=== PATIENT | female | born 1955 | race African-American/Black ===

== ENCOUNTER 2017-03-11 10:09 | Inpatient (IN) | payer OTHER ==
[2017-03-11 12:41] VITALS: BMI 25.5
--- NOTE | 2017-03-11 16:29 | HP ---
CIWA Score - CIWA Score Nausea/Vomitin Muscle Tremors: 3 Anxiety: 3 Agitation: 3 Paroxysmal Sweats: 2 Orientation: 0-Oriented Tacttile Disturbances: 2-Mild Itch/Numbness/Burn Auditory Disturbances: 2-Mild Harshness/Frighten Visual Disturbances: 2-Mild Sensitivity Headache: 2-Mild CIWA-Ar Total Score: 22 Admission ROS BHS - HPI Chief Complaint: i am here for detox from alcohol,xanax,klonopin Allergies/Adverse Reactions: Allergies Allergy/AdvReac Type Severity Reaction Status Date / Time No Known Drug Allergies Allergy Verified 03/11/17 16:19 nkda Allergy Uncoded 03/11/17 16:19 History of Present Illness: this 61 years old black female with xanax,klonopin and alcohol dependence, seeking detox,last treatment 10/22/15 to 10/25/16syncope mmtp 90 mgs/day,last medicated today multiple medical problem type 2 dm,htn,hypercholesterolemia depression one of multiple admissions,keep relapsing cataract both eyes ,surgery on right longest period of sobriety 10 years also has partial hysterectomy for fibroid uterus Exam Limitations: No Limitations - Ebola screening Have you been sick,other than usual withdrawal symptoms: No - Review of Systems Constitutional: Loss of Appetite, Malaise, Night Sweats, Changes in sleep, Weakness, Unintentional Wgt. Loss EENT: reports: Tearing, Nose Congestion, Other (cataract) Respiratory: reports: No Symptoms reported Cardiac: reports: No Symptoms Reported GI: reports: Diarrhea, Nausea, Vomiting, Abdominal cramping : reports: No Symptoms Reported Musculoskeletal: reports: Back Pain, Muscle Pain Integumentary: reports: Dryness Endocrine: reports: No Symptoms Reported Hematology: reports: No Symptoms Reported Psychiatric: reports: Judgement Intact, Mood/Affect Appropiate, Depressed Patient History - Patient Medical History Hx Anemia: No Hx Asthma: No Hx Chronic Obstructive Pulmonary Disease (COPD): No Hx Cancer: No Hx Cardiac Disorders: No Hx Congestive Heart Failure: No Hx Hypertension: Yes (on med) Hx Hypercholesterolemia: Yes (on med) Hx Pacemaker: No HX Cerebrovascular Accident: No Hx Seizures: Yes (drug related 09/07) Hx Dementia: No Hx Diabetes: Yes (on med) Hx Gastrointestinal Disorders: No Hx Genitourinary Disorders: No Hx Sexually Transmitted Disorders: No Hx Renal Disease (ESRD): No Hx Thyroid Disease: No Hx Human Immunodeficiency Virus (HIV): No (09/08 negative) Hx Hepatitis C: Yes (treated ) Hx Depression: Yes Hx Suicide Attempt: Yes (1973- not sure about date,overdose) Hx Bipolar Disorder: No Hx Schizophrenia: No Other Medical History: no suicidal,no homicidal - Patient Surgical History Past Surgical History: Yes Hx Neurologic Surgery: No Hx Cataract Extraction: Yes (4yrs ago) Hx Cardiac Surgery: No Hx Lung Surgery: No Hx Breast Surgery: No Hx Breast Biopsy: No Hx Abdominal Surgery: (partial hysterectomy about 40yrs ago) Hx Appendectomy: No Hx Cholecystectomy: No Hx Genitourinary Surgery: No Hx Section: No Hx Orthopedic Surgery: No Anesthesia Reaction: No - PPD History Previous Implant?: Yes Documented Results: Negative w/o proof Implanted On Prior [facility] Admission?: Yes Date: 10/24/15 Results: o mm PPD to be Administered?: Yes - Reproductive History Last Menstrual Period: 09/03/98 Patient : No - Smoking Cessation Smoking history: Never smoked Have you smoked in the past 12 months: No Aproximately how many cigarettes per day: 0 Cigars Per Day: 0 Hx Chewing Tobacco Use: No - Substance & Tx. History Hx Alcohol Use: Yes Hx Substance Use: Yes Substance Use Type: Alcohol, Cocaine, Tranquilizers Hx Substance Use Treatment: [facility] 10[facility]) - Substances Abused Alcohol Route: Oral Frequency: 3-6 times per week Amount used: 1 pint Age of first use: 13 Date of Last Use: 03/09/17 Alprazolam (Xanax) Route: Oral Frequency: Daily Amount used: 4mg Age of first use: 33 Date of Last Use: 03/10/17 Benzodiazepine (Klonopin) Route: Oral Frequency: Daily Amount used: 4mg Age of first use: 33 Date of Last Use: 03/10/17 Cocaine Route: Inhalation Frequency: 1-3 times last 30 days Amount used: $20 Age of first use: 18 Date of Last Use: 03/07/17 Family Disease History - Family Disease History Family Disease History: Diabetes: Brother (deasesed) Admission Physical Exam BHS - Vital Signs Vital Signs: Vital Signs - 24 hr 03/11/17 12:37 Temperature 97.0 F L Pulse Rate 60 Respiratory 20 Rate Blood Pressure 144/72 - Physical General Appearance: Yes: Moderate Distress, Tremorous, Irritable, Sweating, Anxious HEENTM: Yes: Normal ENT Inspection, [place], Pharynx Normal Respiratory: Yes: Lungs Clear, Normal Breath Sounds, No Respiratory Distress Neck: Yes: Within Normal Limits, Supple, Trachea in good position Breast: Yes: Breast Exam Deferred Cardiology: Yes: Within Normal Limits, Regular Rhythm, Regular Rate, S1, S2 Abdominal: Yes: Within Normal Limits, Normal Bowel Sounds, Non Tender, Flat, Soft Genitourinary: Yes: Within Normal Limits Back: Yes: Muscle Spasm Musculoskeletal: Yes: full range of Motion, Back pain, Muscle Pain Extremities: Yes: Normal Inspection, Normal Range of Motion, Tremors 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, Alert, Motor Strength 5/5 Integumentary: Yes: Dry Lymphatic: Yes: Within Normal Limits - Diagnostic (1) HTN (hypertension) Current Visit: Yes Status: Chronic Qualifiers: Hypertension type: essential hypertension Qualified Code(s): I10 - Essential (primary) hypertension (2) Methadone maintenance therapy patient Current Visit: No Status: Chronic (3) Sedative/hypnotic withdrawal without complication Current Visit: Yes Status: Acute (4) DM2 (diabetes mellitus, type 2) Current Visit: Yes Status: Acute (5) Hypocholesterolemia Current Visit: Yes Status: Acute (6) Hepatitis C Current Visit: Yes Status: Chronic Cleared for Admission [facility] - Detox or Rehab [facility] Level of Care: Medically Managed Detox Regimen/Protocol: Valium [facility] Breath Alcohol Content Breath Alcohol Content: 0 Urine Pregancy Test - Result Urine Test Results: Negative- NO Line Present Urine Drug Screen - Results Drug Screen Negative: No Urine Drug Screen Results: CLARA-Cocaine, BZO-Benzodiazepines, MTD-Methadone
[2017-03-11] MEDS ORDERED: hydrOXYzine PAMOATE 25 MG CAPSULE (FP) PO PRN (16:52)
[2017-03-11] MEDS ORDERED: guaiFENesin/D-METHORPHAN HB 10 ML UNIT-DOSE CUPS PO PRN (16:52)
[2017-03-11] MEDS ORDERED: diphenhydrAMINE HCL 50 MG CAPSULE PO PRN (16:52)
[2017-03-11] MEDS ORDERED: P-EPHED 60MG/TRIPROLIDI 2.5MG TABLET PO PRN (16:52)
[2017-03-11] MEDS ORDERED: MAGNESIUM HYDROX 2400MG/30ML ORAL SUSPENSION 30 ML CUP PO PRN (16:52)
[2017-03-11] MEDS ORDERED: MAGNESIUM CITRATE 300 ML BOTTLE PO PRN (16:52)
[2017-03-11] MEDS ORDERED: MENTHOL/PHENOL 1 EACH UD MM PRN (16:52)
[2017-03-11] MEDS ORDERED: LOPERAMIDE HCL 2 MG CAPSULE PO PRN (16:52)
[2017-03-11] MEDS ORDERED: ACETAMINOPHEN 325 MG TABLET (FP) PO PRN (16:52)
[2017-03-11] MEDS ORDERED: diazePAM 5 MG TABLET PO PRN (16:52)
[2017-03-11] MEDS ORDERED: IBUPROFEN 400 MG TABLET (FP) PO PRN (16:52)
[2017-03-11] MEDS ORDERED: diazePAM 5 MG TABLET PO ONE (17:30)
[2017-03-11 21:12] LABS: URINE APPEARANCE CLEAR; URINE BILIRUBIN NEGATIVE (NEGATIVE); URINE BLOOD NEGATIVE (NEGATIVE); URINE COLOR YELLOW; URINE GLUCOSE (UA) 1+ (NEGATIVE); URINE KETONE NEGATIVE (NEGATIVE); URINE NITRITE NEGATIVE (NEGATIVE); URINE PROTEIN NEGATIVE (NEGATIVE); URINE UROBILINOGEN NEGATIVE mg/dL (0.2-1.0)
[2017-03-11 21:14] LABS: URINE LEUK ESTERASE 1+ (NEGATIVE)
[2017-03-11 22:01] LABS: URINE MUCUS RARE; URINE RBC 1 /hpf (0-3); URINE WBC 1 /hpf (3-5)
[2017-03-11] MEDS: ATORVASTATIN CA 20 MG TABLET (FP) PO SCH (22:18)
[2017-03-11] MEDS: THIAMINE HCL 100 MG TABLET (FP) PO SCH (22:18)
[2017-03-11] MEDS: INSULIN DETEMIR 100 UNITS/ML MDV SQ SCH (22:19)
[2017-03-11] MEDS: diazePAM 5 MG TABLET PO SCH (22:19)
[2017-03-12] MEDS: diazePAM 5 MG TABLET PO SCH ×3 (05:58→22:24)
[2017-03-12 10:17] LABS: MCH 31.5 pg (25.7-33.7); MCHC 33.5 g/dl (32.0-36.0); MEAN CELL VOLUME 93.9 fl (80-96); MEAN PLT VOLUME 7.3 fl (7.5-11.1); PLATELET COUNT 171 K/MM3 (134-434); RDW 13.3 % (11.6-15.6); WHITE BLOOD COUNT 4.5 K/mm3 (4.0-10.0)
--- NOTE | 2017-03-12 10:23 | EKG ---
Test Reason : Blood Pressure : / mmHG Vent. Rate : 060 BPM Atrial Rate : 060 BPM P-R Int : 140 ms QRS Dur : 076 ms QT Int : 378 ms P-R-T Axes : 050 043 029 degrees QTc Int : 378 ms NORMAL SINUS RHYTHM POSSIBLE LEFT ATRIAL ENLARGEMENT Confirmed by MD MARY, SAVANA ([id number]) on 03/12/2017 10:23:31 AM Referred By: Confirmed By:SAVANA HERNANDEZ MD
[2017-03-12] MEDS ORDERED: METHADONE HCL 10 MG TABLET PO ONE (10:41)
[2017-03-12] MEDS: HYDROCHLOROTHIAZIDE 25 MG TABLET (FP) PO SCH (10:49)
[2017-03-12] MEDS: PRENATAL VITAMINS W/ FOLIC ACID TABLET (FP) PO SCH (10:49)
[2017-03-12] MEDS: MAG HYDROX/AL HYDROX/SIMETH 30 ML UNIT-DOSE CUP PO PRN (10:50)
[2017-03-12] MEDS: LISINOPRIL 10 MG TABLET (FP) PO SCH (10:50)
[2017-03-12] MEDS ORDERED: METHADONE 80 MG, METHADONE 10 MG PO ONE (11:00)
[2017-03-12 11:05] LABS: ALBUMIN 3.3 g/dl (3.4-5.0); ALK PHOS 72 U/L (45-117); ANION GAP 7 (8-16); BILIRUBIN,TOTAL 0.4 mg/dL (0.2-1.0); CO2 31 mmol/L (21-32); CREATININE 0.8 mg/dL (0.55-1.02); GLUCOSE,RANDOM 141 mg/dL (74-106); SGOT/AST 25 U/L (15-37); SGPT/ALT 26 U/L (12-78); TOT PROT 6.1 g/dl (6.4-8.2)
[2017-03-12] MEDS ORDERED: METHADONE HCL 40 MG DISPERSABLE TABLET ONE (11:17)
[2017-03-12] MEDS ORDERED: METHADONE HCL 10 MG TABLET ONE (11:18)
--- NOTE | 2017-03-12 11:56 | PN ---
[facility] CIWA - CIWA Score Nausea/Vomitin Muscle Tremors: 3 Anxiety: 3 Agitation: 3 Paroxysmal Sweats: 3 Orientation: 0-Oriented Tacttile Disturbances: 2-Mild Itch/Numbness/Burn Auditory Disturbances: 0-None Visual Disturbances: 0-None Headache: 0-None Present CIWA-Ar Total Score: 17 [facility] Progress Note (SOAP) Subjective: interrupted sleep, sweats, shakes, anxiety Objective: 03/12/17 11:54 Vital Signs Temperature 97.9 F 03/12/17 10:00 Pulse Rate 68 03/12/17 10:00 Respiratory Rate 18 03/12/17 10:00 Blood Pressure 131/72 03/12/17 10:00 O2 Sat by Pulse Oximetry (%) Laboratory Tests 03/11/17 03/11/17 03/11/17 16:50 17:20 21:57 WBC RBC Hgb Hct MCV MCH MCHC RDW Plt Count MPV Sodium Potassium Chloride Carbon Dioxide Anion Gap BUN Creatinine Creat Clearance w eGFR POC Glucometer 106 254 Random Glucose Calcium Total Bilirubin AST ALT Alkaline Phosphatase Total Protein Albumin Urine Color Yellow Urine Appearance Clear Urine pH 6.0 Ur Specific [place] 1.020 Urine Protein Negative Urine Glucose (UA) 1+ H D Urine Ketones Negative Urine Blood Negative Urine Nitrite Negative Urine Bilirubin Negative Urine Urobilinogen Negative Ur Leukocyte Esterase 1+ H Urine RBC 1 Urine WBC 1 Ur Epithelial Cells Rare Urine Mucus Rare 03/12/17 03/12/17 03/12/17 05:57 06:30 06:30 WBC 4.5 RBC 4.06 Hgb 12.8 Hct 38.1 MCV 93.9 MCH 31.5 MCHC 33.5 RDW 13.3 Plt Count 171 D MPV 7.3 L Sodium 141 Potassium 3.7 Chloride 103 Carbon Dioxide 31 Anion Gap 7 L BUN 9 D Creatinine 0.8 Creat Clearance w eGFR > 60 POC Glucometer 188 Random Glucose 141 H D Calcium 9.0 Total Bilirubin 0.4 D AST 25 ALT 26 Alkaline Phosphatase 72 Total Protein 6.1 L Albumin 3.3 L Urine Color Urine Appearance Urine pH Ur Specific [place] Urine Protein Urine Glucose (UA) Urine Ketones Urine Blood Urine Nitrite Urine Bilirubin Urine Urobilinogen Ur Leukocyte Esterase Urine RBC Urine WBC Ur Epithelial Cells Urine Mucus pt aox3 in nad ambulating Assessment: 03/12/17 11:55 withdrawal sx's Plan: cont. detox increase fluids vistaril prn
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
[2017-03-12] MEDS: ZOLPIDEM TARTRATE 5 MG TABLET PO PRN (22:23)
[2017-03-12] MEDS: INSULIN DETEMIR 100 UNITS/ML MDV SQ SCH (22:23)
[2017-03-12] MEDS: ATORVASTATIN CA 20 MG TABLET (FP) PO SCH (22:24)
[2017-03-12] MEDS: THIAMINE HCL 100 MG TABLET (FP) PO SCH (22:24)
[2017-03-13] MEDS ORDERED: METHADONE HCL 40 MG DISPERSABLE TABLET ONE (05:25)
[2017-03-13] MEDS ORDERED: METHADONE HCL 10 MG TABLET ONE (05:26)
[2017-03-13] MEDS: METHADONE 80 MG, METHADONE 10 MG PO SCH (05:52)
[2017-03-13] MEDS ORDERED: METHADONE HCL 10 MG TABLET PO SCH (06:00)
[2017-03-13] MEDS: HYDROCHLOROTHIAZIDE 25 MG TABLET (FP) PO SCH (10:43)
[2017-03-13] MEDS: LISINOPRIL 10 MG TABLET (FP) PO SCH (10:43)
[2017-03-13] MEDS: PRENATAL VITAMINS W/ FOLIC ACID TABLET (FP) PO SCH (10:43)
[2017-03-13] MEDS: diazePAM 5 MG TABLET PO SCH ×2 (10:43→22:29)
--- NOTE | 2017-03-13 15:14 | PN ---
S CIWA - CIWA Score Nausea/Vomitin Muscle Tremors: 3 Anxiety: 3 Agitation: 2 Paroxysmal Sweats: 1-Minimal Palms Moist Orientation: 0-Oriented Tacttile Disturbances: 1-Very Mild Itch/Numbness Auditory Disturbances: 1-Very Mild Visual Disturbances: 1-Very Mild Sensitivity Headache: 2-Mild CIWA-Ar Total Score: 17 S Progress Note (SOAP) Subjective: alert,irritable,anxious,interrupted sleep,tremor Objective: 03/13/17 15:12 Vital Signs Temperature 97.7 F 03/13/17 14:31 Pulse Rate 74 03/13/17 14:31 Respiratory Rate 18 03/13/17 14:31 Blood Pressure 161/92 03/13/17 14:31 O2 Sat by Pulse Oximetry (%) Laboratory Last Values WBC 4.5 K/mm3 (4.0-10.0) 03/12/17 06:30 RBC 4.06 M/mm3 (3.60-5.2) 03/12/17 06:30 Hgb 12.8 GM/dL (10.7-15.3) 03/12/17 06:30 Hct 38.1 % (32.4-45.2) 03/12/17 06:30 MCV 93.9 fl (80-96) 03/12/17 06:30 MCH 31.5 pg (25.7-33.7) 03/12/17 06:30 MCHC 33.5 g/dl (32.0-36.0) 03/12/17 06:30 RDW 13.3 % (11.6-15.6) 03/12/17 06:30 Plt Count 171 K/MM3 (134-434) D 03/12/17 06:30 MPV 7.3 fl (7.5-11.1) L 03/12/17 06:30 Sodium 141 mmol/L (136-145) 03/12/17 06:30 Potassium 3.7 mmol/L (3.5-5.1) 03/12/17 06:30 Chloride 103 mmol/L (98-107) 03/12/17 06:30 Carbon Dioxide 31 mmol/L (21-32) 03/12/17 06:30 Anion Gap 7 (8-16) L 03/12/17 06:30 BUN 9 mg/dL (7-18) D 03/12/17 06:30 Creatinine 0.8 mg/dL (0.55-1.02) 03/12/17 06:30 Creat Clearance w eGFR > 60 (>60) 03/12/17 06:30 POC Glucometer 206 UNITS (()) 03/13/17 05:51 Random Glucose 141 mg/dL (74-106) H D 03/12/17 06:30 Calcium 9.0 mg/dL (8.5-10.1) 03/12/17 06:30 Total Bilirubin 0.4 mg/dL (0.2-1.0) D 03/12/17 06:30 AST 25 U/L (15-37) 03/12/17 06:30 ALT 26 U/L (12-78) 03/12/17 06:30 Alkaline Phosphatase 72 U/L (45-117) 03/12/17 06:30 Total Protein 6.1 g/dl (6.4-8.2) L 03/12/17 06:30 Albumin 3.3 g/dl (3.4-5.0) L 03/12/17 06:30 Urine Color Yellow 03/11/17 17:20 Urine Appearance Clear 03/11/17 17:20 Urine pH 6.0 (5.0-8.0) 03/11/17 17:20 Ur Specific [place] 1.020 (1.005-1.025) 03/11/17 17:20 Urine Protein Negative (NEGATIVE) 03/11/17 17:20 Urine Glucose (UA) 1+ (NEGATIVE) H D 03/11/17 17:20 Urine Ketones Negative (NEGATIVE) 03/11/17 17:20 Urine Blood Negative (NEGATIVE) 03/11/17 17:20 Urine Nitrite Negative (NEGATIVE) 03/11/17 17:20 Urine Bilirubin Negative (NEGATIVE) 03/11/17 17:20 Urine Urobilinogen Negative mg/dL (0.2-1.0) 03/11/17 17:20 Ur Leukocyte Esterase 1+ (NEGATIVE) H 03/11/17 17:20 Urine RBC 1 /hpf (0-3) 03/11/17 17:20 Urine WBC 1 /hpf (3-5) 03/11/17 17:20 Ur Epithelial Cells Rare /hpf (FEW) 03/11/17 17:20 Urine Mucus Rare 03/11/17 17:20 RPR Titer Nonreactive (NONREACTIVE) 03/12/17 06:30 Assessment: 03/13/17 15:13 withdrawal symptom Plan: continue detox,bgm monitoring
[2017-03-13] MEDS: MAG HYDROX/AL HYDROX/SIMETH 30 ML UNIT-DOSE CUP PO PRN (22:28)
[2017-03-13] MEDS: ZOLPIDEM TARTRATE 5 MG TABLET PO PRN (22:29)
[2017-03-13] MEDS: INSULIN DETEMIR 100 UNITS/ML MDV SQ SCH (22:29)
[2017-03-13] MEDS: ATORVASTATIN CA 20 MG TABLET (FP) PO SCH (22:29)
[2017-03-13] MEDS: THIAMINE HCL 100 MG TABLET (FP) PO SCH (22:30)
[2017-03-14] MEDS ORDERED: METHADONE HCL 10 MG TABLET ONE (04:42)
[2017-03-14] MEDS ORDERED: METHADONE HCL 40 MG DISPERSABLE TABLET ONE (04:42)
[2017-03-14] MEDS: METHADONE 80 MG, METHADONE 10 MG PO SCH (05:33)
[2017-03-14] MEDS: ONDANSETRON *ODT* 4 MG TABLET SL PRN ×2 (09:18→20:01)
[2017-03-14] MEDS: PRENATAL VITAMINS W/ FOLIC ACID TABLET (FP) PO SCH (10:28)
[2017-03-14] MEDS: HYDROCHLOROTHIAZIDE 25 MG TABLET (FP) PO SCH (10:28)
[2017-03-14] MEDS: diazePAM 5 MG TABLET PO SCH ×2 (10:29→22:11)
[2017-03-14] MEDS: LISINOPRIL 10 MG TABLET (FP) PO SCH (10:29)
--- NOTE | 2017-03-14 11:40 | PN ---
S Progress Note (SOAP) Subjective: ALERT,IRRITABLE,NAUSEA PAIN IN THE BODY Objective: 03/14/17 11:39 Vital Signs Temperature 98.2 F 03/14/17 10:00 Pulse Rate 90 03/14/17 10:00 Respiratory Rate 20 03/14/17 10:00 Blood Pressure 161/99 03/14/17 10:00 O2 Sat by Pulse Oximetry (%) Assessment: 03/14/17 11:40 WITHDRAWAL SYMPTOM Plan: CONTINUE DETOX,DISCHARGE IN AM
[2017-03-14] MEDS: INSULIN DETEMIR 100 UNITS/ML MDV SQ SCH (22:11)
[2017-03-14] MEDS: ATORVASTATIN CA 20 MG TABLET (FP) PO SCH (22:11)
[2017-03-14] MEDS: THIAMINE HCL 100 MG TABLET (FP) PO SCH (22:36)
[2017-03-15] MEDS ORDERED: METHADONE HCL 40 MG DISPERSABLE TABLET ONE (04:53)
[2017-03-15] MEDS ORDERED: METHADONE HCL 10 MG TABLET ONE (04:54)
[2017-03-15] MEDS: METHADONE 80 MG, METHADONE 10 MG PO SCH (05:33)
--- NOTE | 2017-03-15 09:28 | DS ---
[facility] Detox Discharge Summary Admission Date: 03/11/17 Discharge Date: 03/15/17 - History Present History: Sedative Dependence, MMTP - Physical Exam Results Vital Signs: Vital Signs Temperature 98.1 F 03/15/17 06:20 Pulse Rate 70 03/15/17 06:20 Respiratory Rate 18 03/15/17 06:20 Blood Pressure 160/89 03/15/17 06:20 O2 Sat by Pulse Oximetry (%) - Treatment Hospital Course: Detox Protocol Followed, Detoxed Safely, Responded well, Discharged Condition Good, Rehab Referral Accepted - Medication Discharge Medications: Ambulatory Orders Insulin Glargine,Hum.rec.anlog [Lantus Solostar PEN -] 16 units SQ HS #1 ins 01/05 Metformin HCl [Metformin HCl ER] 1,000 mg PO DAILY #30 tab.er.24 10/26/15 Simvastatin 40 mg PO HS #30 tablet 10/26/15 Lisinopril/Hydrochlorothiazide [Lisinopril-Hctz 20-25 mg Tab] 1 each PO DAILY - Diagnosis (1) DM2 (diabetes mellitus, type 2) Current Visit: Yes Status: Chronic Qualifiers: Diabetes mellitus complication status: without complication Diabetes mellitus intermediate designer insulin use: unspecified intermediate designer insulin use status Qualified Code(s): E11.9 - Type 2 diabetes mellitus without complications (2) Hypocholesterolemia Current Visit: Yes Status: Chronic (3) Insomnia Current Visit: Yes Status: Acute (4) Opioid dependence on agonist therapy Current Visit: Yes Status: Acute (5) Sedative/hypnotic withdrawal without complication Current Visit: Yes Status: Chronic (6) Diabetes Current Visit: Yes Status: Chronic Qualifiers: Diabetes mellitus type: type 1 Diabetes mellitus complication status: without complication Qualified Code(s): E10.9 - Type 1 diabetes mellitus without complications (7) HTN (hypertension) Current Visit: Yes Status: Chronic Qualifiers: Hypertension type: essential hypertension Qualified Code(s): I10 - Essential (primary) hypertension (8) Hepatitis C Current Visit: Yes Status: Chronic Qualifiers: Viral hepatitis chronicity: chronic Hepatic coma status: without hepatic coma Qualified Code(s): B18.2 - Chronic viral hepatitis C (9) Anxiety disorder Current Visit: No Status: Acute (10) Methadone maintenance therapy patient Current Visit: Yes Status: Chronic - AMA Did Patient Leave Against Medical Advice: No (HELP out patient)
[2017-03-15] MEDS: LISINOPRIL 10 MG TABLET (FP) PO SCH (09:50)
[2017-03-15] MEDS: PRENATAL VITAMINS W/ FOLIC ACID TABLET (FP) PO SCH (09:50)
[2017-03-15] MEDS: HYDROCHLOROTHIAZIDE 25 MG TABLET (FP) PO SCH (09:50)
[2017-03-15] MEDS ORDERED: diazePAM 5 MG TABLET PO SCH (10:00)
[2017-03-15 10:08] VITALS: BP 170/93; PULSE 95; TEMP 97.3
== END 2017-03-15 10:56 | disposition home or self-care (01) | DRG 773 ==
LOC: YASAS 10:09 → Y6N 16:41
PROVIDERS: ADMIT Internal Medicine Addiction Medicine; ATTEND Internal Medicine Addiction Medicine
PROC: HZ2ZZZZ Detoxification Services for Substance Abuse Treatment (ICD-10-PCS; principal; 2017-03-11)
DX: F13.230 Sedative, hypnotic or anxiolytic dependence with withdrawal, uncomplicated (principal); F11.20 Opioid dependence, uncomplicated; F41.9 Anxiety disorder, unspecified; E11.9 Type 2 diabetes mellitus without complications; E78.00 Pure hypercholesterolemia, unspecified; G47.00 Insomnia, unspecified; I10 Essential (primary) hypertension; H26.9 Unspecified cataract; Z86.69 Personal history of other diseases of the nervous system and sense organs; Z79.84 Long term (current) use of oral hypoglycemic drugs; Z90.710 Acquired absence of both cervix and uterus; Z91.5 Personal history of self-harm
CPT/HCPCS: 36415; 80053; 81003; 81015; 85027; 86593; 93005; 93010

== ENCOUNTER 2018-03-01 11:15 | Inpatient (IN) | payer OTHER ==
[2018-03-01 11:54] VITALS: BMI 24.0
--- NOTE | 2018-03-01 14:37 | HP ---
CIWA Score - CIWA Score Nausea/Vomitin Muscle Tremors: 3 Anxiety: 3 Agitation: 2 Paroxysmal Sweats: 1-Minimal Palms Moist Orientation: 0-Oriented Tacttile Disturbances: 1-Very Mild Itch/Numbness Auditory Disturbances: 1-Very Mild Visual Disturbances: 0-None Headache: 2-Mild CIWA-Ar Total Score: 16 Admission ROS [facility] - HPI Chief Complaint: i need help to stop drinking alcohol,klonopin and mmtp Allergies/Adverse Reactions: Allergies Allergy/AdvReac Type Severity Reaction Status Date / Time No Known Drug Allergies Allergy Verified 03/01/18 13:59 nkda Allergy Uncoded 03/01/18 13:59 History of Present Illness: this 62 years old female with alcohol and klonopin dependence,mmtp 90 mgs/day, seeking detox,withdrawal symptom, ambulation with wlaker,frequent falls hypertension,hypercholesterolemia,arthritis,arthritis weight loss no significant period of sobriety ptsd,depression,insomnia s/p hysterectomy for fibroid multiple admissions in the past but keep relapsing - Ebola screening Have you traveled outside of the country in the last 21 days: No Have you had contact with anyone from an Ebola affected area: No Have you been sick,other than usual withdrawal symptoms: No Do you have a fever: No - Review of Systems Constitutional: Loss of Appetite, Malaise, Night Sweats, Changes in sleep, Weakness, Unintentional Wgt. Loss EENT: reports: Tearing, Nose Congestion Respiratory: reports: No Symptoms reported Cardiac: reports: No Symptoms Reported GI: reports: Diarrhea, Nausea, Vomiting, Abdominal cramping : reports: No Symptoms Reported Musculoskeletal: reports: Back Pain, Joint Pain, Muscle Pain Integumentary: reports: Dryness Neuro: reports: Headache, Tremors Endocrine: reports: No Symptoms Reported Hematology: reports: No Symptoms Reported Psychiatric: reports: No Sypmtoms Reported, Judgement Intact, Mood/Affect Appropiate, Orientated x3 Patient History - Patient Medical History Hx Anemia: No Hx Asthma: No Hx Chronic Obstructive Pulmonary Disease (COPD): No Hx Cancer: No Hx Cardiac Disorders: No Hx Congestive Heart Failure: No Hx Hypertension: Yes (on meds.) Hx Hypercholesterolemia: Yes (on med) Hx Pacemaker: No HX Cerebrovascular Accident: No Hx Seizures: No Hx Dementia: No Hx Diabetes: Yes (Pt has a hx of Type II) Hx Gastrointestinal Disorders: No Hx Liver Disease: Yes (herpatitis c) Hx Genitourinary Disorders: No Hx Sexually Transmitted Disorders: No Hx Renal Disease (ESRD): No Hx Thyroid Disease: No Hx Human Immunodeficiency Virus (HIV): No (09/08 negative) Hx Hepatitis C: Yes (treated ) Hx Depression: Yes Hx Suicide Attempt: No Hx Bipolar Disorder: No Hx Schizophrenia: No Other Medical History: no suicidal,no homicidal,frquent falls,ambulation with walker - Patient Surgical History Past Surgical History: Yes Hx Neurologic Surgery: No Hx Cataract Extraction: Yes (L eye in 2012 R eye 3 months ago) Hx Cardiac Surgery: No Hx Lung Surgery: No Hx Breast Surgery: No Hx Breast Biopsy: No Hx Abdominal Surgery: Yes (partial hysterectomy about 40yrs ago) Hx Appendectomy: No Hx Cholecystectomy: No Hx Genitourinary Surgery: No Hx Section: No Hx Orthopedic Surgery: No Anesthesia Reaction: No - PPD History Previous Implant?: Yes Documented Results: Negative w/proof Implanted On Prior [facility] Admission?: Yes Date: 10/24/15 Results: o mm PPD to be Administered?: Yes - Reproductive History Patient is a Female of Child Bearing Age (11 -55 yrs old): No Last Menstrual Period: 09/03/98 Patient : No - Smoking Cessation Smoking history: Never smoked Have you smoked in the past 12 months: No Aproximately how many cigarettes per day: 0 If you are a former smoker, when did you quit?: 2013 Cigars Per Day: 0 Hx Chewing Tobacco Use: No Initiated information on smoking cessation: Yes 'Breaking Loose' booklet given: 03/01/18 - Substance & Tx. History Hx Alcohol Use: Yes Hx Substance Use: Yes Substance Use Type: Alcohol, Cocaine, Tranquilizers Hx Substance Use Treatment: Yes ([facility] 12/07/17 to 12/11/17) - Substances Abused Benzodiazepine (Klonopin) Route: Oral Frequency: Daily Amount used: 20mg Age of first use: 52 Date of Last Use: 02/25/18 Alprazolam (Xanax) Route: Oral Frequency: Daily Amount used: 4mg Age of first use: 52 Date of Last Use: 02/28/18 Cocaine Route: Inhalation Frequency: Daily Amount used: $10 Age of first use: 19 Date of Last Use: 02/27/18 Alcohol Route: Oral Frequency: Daily Amount used: 1/2 pint liquor Age of first use: 11 Date of Last Use: 02/28/18 Family Disease History - Family Disease History Family Disease History: Diabetes: Brother () Admission Physical Exam [facility] - Vital Signs Vital Signs: Vital Signs - 24 hr 03/01/18 11:50 Temperature 96.2 F L Pulse Rate 54 L Respiratory 19 Rate Blood Pressure 116/70 - Physical General Appearance: Yes: Moderate Distress, Tremorous, Irritable, Sweating, Anxious HEENTM: Yes: Normal ENT Inspection, [place], Pharynx Normal Respiratory: Yes: Lungs Clear, Normal Breath Sounds, No Respiratory Distress Neck: Yes: Within Normal Limits, Supple, Trachea in good position Breast: Yes: Breast Exam Deferred Cardiology: Yes: Within Normal Limits, Regular Rhythm, Regular Rate, S1, S2 Abdominal: Yes: Within Normal Limits, Normal Bowel Sounds, Non Tender, Soft Genitourinary: Yes: Within Normal Limits Back: Yes: Muscle Spasm Musculoskeletal: Yes: Back pain, Joint Stiffness, Muscle Pain Extremities: Yes: Tremors 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, Fully Oriented, Alert, Motor Strength 5/5 Integumentary: Yes: Dry Lymphatic: Yes: Within Normal Limits - Diagnostic (1) Alcohol dependence with uncomplicated withdrawal Current Visit: Yes Status: Acute (2) Sedative/hypnotic withdrawal without complication Current Visit: No Status: Chronic (3) Cocaine dependence Current Visit: Yes Status: Acute (4) Insomnia Current Visit: Yes Status: Acute (5) DM2 (diabetes mellitus, type 2) Current Visit: Yes Status: Chronic Qualifiers: Diabetes mellitus termite technician insulin use: unspecified termite technician insulin use status Diabetes mellitus complication status: without complication Qualified Code(s): E11.9 - Type 2 diabetes mellitus without complications (6) HTN (hypertension) Current Visit: Yes Status: Chronic Qualifiers: Hypertension type: essential hypertension Qualified Code(s): I10 - Essential (primary) hypertension (7) Hepatitis C Current Visit: Yes Status: Chronic Qualifiers: Viral hepatitis chronicity: chronic Hepatic coma status: without hepatic coma Qualified Code(s): B18.2 - Chronic viral hepatitis C (8) Methadone maintenance therapy patient Current Visit: No Status: Chronic Cleared for Admission [facility] - Detox or Rehab [facility] Level of Care: Medically Managed [facility]ox [facility]ath Alcohol Content Breath Alcohol Content: 0 Urine Pregancy Test - Result Urine Test Results: Negative- NO Line Present Urine Drug Screen - Results Drug Screen Negative: No Urine Drug Screen Results: CLARA-Cocaine, BZO-Benzodiazepines, MTD-Methadone
[2018-03-01] MEDS ORDERED: MAGNESIUM CITRATE 300 ML BOTTLE PO PRN (14:52)
[2018-03-01] MEDS ORDERED: MENTHOL/PHENOL 1 EACH UD MM PRN (14:52)
[2018-03-01] MEDS ORDERED: MAGNESIUM HYDROX 2400MG/30ML ORAL SUSPENSION 30 ML CUP PO PRN (14:52)
[2018-03-01] MEDS ORDERED: LOPERAMIDE HCL 2 MG CAPSULE PO PRN (14:52)
[2018-03-01] MEDS ORDERED: P-EPHED 60MG/TRIPROLIDI 2.5MG TABLET PO PRN (14:52)
[2018-03-01] MEDS ORDERED: hydrOXYzine PAMOATE 25 MG CAPSULE (FP) PO PRN (14:52)
[2018-03-01] MEDS ORDERED: ACETAMINOPHEN 325 MG TABLET (FP) PO PRN (14:52)
[2018-03-01] MEDS ORDERED: MAG HYDROX/AL HYDROX/SIMETH 30 ML UNIT-DOSE CUP PO PRN (14:52)
[2018-03-01] MEDS ORDERED: chlordiazePOXIDE HCL 25 MG CAPSULE PO PRN (14:52)
[2018-03-01] MEDS ORDERED: IBUPROFEN 400 MG TABLET (FP) PO PRN (14:52)
[2018-03-01] MEDS ORDERED: guaiFENesin/D-METHORPHAN HB 10 ML UNIT-DOSE CUPS PO PRN (14:52)
[2018-03-01] MEDS: chlordiazePOXIDE HCL 25 MG CAPSULE PO SCH ×2 (17:27→22:07)
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
[2018-03-01] MEDS: ATORVASTATIN CA 40 MG TABLET (FP) PO SCH (22:08)
[2018-03-01] MEDS: THIAMINE HCL 100 MG TABLET (FP) PO SCH (22:08)
[2018-03-01] MEDS: MELATONIN 5 MG TABLETS PO PRN (22:08)
[2018-03-02] MEDS: chlordiazePOXIDE HCL 25 MG CAPSULE PO SCH ×4 (06:01→22:15)
[2018-03-02 09:31] LABS: HEMATOCRIT 32.8 % (32.4-45.2); HEMOGLOBIN 11.2 GM/dL (10.7-15.3); MCH 31.8 pg (25.7-33.7); MCHC 34.1 g/dl (32.0-36.0); MEAN CELL VOLUME 93.3 fl (80-96); PLATELET COUNT 139 K/MM3 (134-434); RBC 3.51 M/mm3 (3.60-5.2); RDW 13.9 % (11.6-15.6); WHITE BLOOD COUNT 4.4 K/mm3 (4.0-10.0)
[2018-03-02 09:44] LABS: ALBUMIN 3.4 g/dl (3.4-5.0); ANION GAP 8 (8-16); BLOOD UREA NITROGEN 14 mg/dL (7-18); CALCIUM 9.1 mg/dL (8.5-10.1); CHLORIDE 107 mmol/L (98-107); CO2 32 mmol/L (21-32); CREATININE 0.9 mg/dL (0.55-1.02); GLUCOSE,RANDOM 71 mg/dL (74-106); POTASSIUM 3.7 mmol/L (3.5-5.1); SGOT/AST 30 U/L (15-37); SGPT/ALT 26 U/L (12-78); SODIUM 147 mmol/L (136-145)
[2018-03-02 09:45] LABS: ALK PHOS 57 U/L (45-117); BILIRUBIN,TOTAL 0.6 mg/dL (0.2-1.0); TOT PROT 6.1 g/dl (6.4-8.2)
[2018-03-02] MEDS ORDERED: METHADONE HCL 10 MG TABLET PO ONE (09:57)
[2018-03-02] MEDS: amLODIPine BESYLATE 10 MG TABLET (FP) PO SCH (10:06)
[2018-03-02] MEDS: LISINOPRIL 20 MG TABLET (FP) PO SCH (10:06)
[2018-03-02] MEDS: PRENATAL VITAMINS W/ FOLIC ACID TABLET (FP) PO SCH (10:06)
[2018-03-02] MEDS ORDERED: METHADONE 80 MG, METHADONE 10 MG PO ONE (10:15)
--- NOTE | 2018-03-02 10:16 | EKG ---
Test Reason : Blood Pressure : / mmHG Vent. Rate : 055 BPM Atrial Rate : 055 BPM P-R Int : 140 ms QRS Dur : 072 ms QT Int : 614 ms P-R-T Axes : 048 046 020 degrees QTc Int : 587 ms SINUS BRADYCARDIA WITH FREQUENT PREMATURE VENTRICULAR COMPLEXES IN A PATTERN OF BIGEMINY POSSIBLE LEFT ATRIAL ENLARGEMENT NONSPECIFIC T WAVE ABNORMALITY ABNORMAL ECG WHEN COMPARED WITH ECG OF 11-MAR-2017 16:31, PREMATURE VENTRICULAR COMPLEXES ARE NOW PRESENT QT HAS LENGTHENED Confirmed by PALMIRA HUBBARD, MARJORIE ([id number]) on 03/02/2018 10:16:15 AM Referred By: Confirmed By:MARJORIE CHAVIS MD
--- NOTE | 2018-03-02 10:19 | PN ---
[facility] CIWA - CIWA Score Nausea/Vomitin-Mild Nausea/No Vomiting Muscle Tremors: 4-Moderate,w/Arms Extend Anxiety: 4-Mod. Anxious/Guarded Agitation: 4-Moderately Restless Paroxysmal Sweats: 1-Minimal Palms Moist Orientation: 0-Oriented Tacttile Disturbances: 0-None Auditory Disturbances: 0-None Visual Disturbances: 0-None Headache: 0-None Present CIWA-Ar Total Score: 14 S Progress Note (SOAP) Subjective: sweat tremor restlessness irritable anxiety Objective: 03/02/18 10:18 Vital Signs Temperature 97.9 F 03/02/18 09:14 Pulse Rate 57 L 03/02/18 09:14 Respiratory Rate 16 03/02/18 09:14 Blood Pressure 131/75 03/02/18 09:14 O2 Sat by Pulse Oximetry (%) Laboratory Last Values WBC 4.4 K/mm3 (4.0-10.0) 03/02/18 07:00 RBC 3.51 M/mm3 (3.60-5.2) L 03/02/18 07:00 Hgb 11.2 GM/dL (10.7-15.3) 03/02/18 07:00 Hct 32.8 % (32.4-45.2) 03/02/18 07:00 MCV 93.3 fl (80-96) 03/02/18 07:00 MCH 31.8 pg (25.7-33.7) 03/02/18 07:00 MCHC 34.1 g/dl (32.0-36.0) 03/02/18 07:00 RDW 13.9 % (11.6-15.6) 03/02/18 07:00 Plt Count 139 K/MM3 (134-434) 03/02/18 07:00 MPV 7.0 fl (7.5-11.1) L 03/02/18 07:00 Sodium 147 mmol/L (136-145) H 03/02/18 08:30 Potassium 3.7 mmol/L (3.5-5.1) 03/02/18 08:30 Chloride 107 mmol/L (98-107) 03/02/18 08:30 Carbon Dioxide 32 mmol/L (21-32) 03/02/18 08:30 Anion Gap 8 (8-16) 03/02/18 08:30 BUN 14 mg/dL (7-18) 03/02/18 08:30 Creatinine 0.9 mg/dL (0.55-1.02) 03/02/18 08:30 Creat Clearance w eGFR > 60 (>60) 03/02/18 08:30 POC Glucometer 86 UNITS (80-120) 03/02/18 06:01 Random Glucose 71 mg/dL (74-106) L 03/02/18 08:30 Calcium 9.1 mg/dL (8.5-10.1) 03/02/18 08:30 Total Bilirubin 0.6 mg/dL (0.2-1.0) 03/02/18 08:30 AST 30 U/L (15-37) 03/02/18 08:30 ALT 26 U/L (12-78) 03/02/18 08:30 Alkaline Phosphatase 57 U/L (45-117) 03/02/18 08:30 Total Protein 6.1 g/dl (6.4-8.2) L 03/02/18 08:30 Albumin 3.4 g/dl (3.4-5.0) 03/02/18 08:30 lab noted Assessment: 03/02/18 10:19 withdrawal sx Plan: continue detox
[2018-03-02] MEDS ORDERED: METHADONE HCL 10 MG TABLET ONE (10:35)
[2018-03-02] MEDS ORDERED: METHADONE HCL 40 MG DISPERSABLE TABLET ONE (10:35)
[2018-03-02 14:50] LABS: URINE APPEARANCE CLEAR; URINE BILIRUBIN NEGATIVE (<2.0 mg/dL); URINE COLOR YELLOW; URINE GLUCOSE (UA) NEGATIVE (NEGATIVE); URINE KETONE NEGATIVE (NEGATIVE); URINE NITRITE NEGATIVE (NEGATIVE); URINE PROTEIN NEGATIVE (NEGATIVE); URINE UROBILINOGEN 4.0 E.U/dl mg/dL (0.2-1.0)
[2018-03-02 14:51] LABS: URINE LEUK ESTERASE 1+ (NEGATIVE)
[2018-03-02 14:53] LABS: EPI CELLS RARE /HPF (FEW); URINE HYALINE CAST 1 /lpf; URINE MUCUS RARE
[2018-03-02] MEDS: THIAMINE HCL 100 MG TABLET (FP) PO SCH (22:15)
[2018-03-02] MEDS: MELATONIN 5 MG TABLETS PO PRN (22:16)
[2018-03-02] MEDS: ATORVASTATIN CA 40 MG TABLET (FP) PO SCH (22:16)
[2018-03-02] MEDS: INSULIN (LEVEMIR) 100 UNITS/ML UNITS SQ SCH (22:33)
[2018-03-03] MEDS ORDERED: METHADONE HCL 10 MG TABLET ONE (04:48)
[2018-03-03] MEDS ORDERED: METHADONE HCL 40 MG DISPERSABLE TABLET ONE (04:48)
[2018-03-03] MEDS ORDERED: METHADONE HCL 40 MG DISPERSABLE TABLET PO SCH (06:00)
[2018-03-03] MEDS: METHADONE 80 MG, METHADONE 10 MG PO SCH (06:11)
[2018-03-03] MEDS: chlordiazePOXIDE HCL 25 MG CAPSULE PO SCH ×2 (06:11→10:10)
[2018-03-03] MEDS: LISINOPRIL 20 MG TABLET (FP) PO SCH (10:10)
[2018-03-03] MEDS: amLODIPine BESYLATE 10 MG TABLET (FP) PO SCH (10:10)
[2018-03-03] MEDS: PRENATAL VITAMINS W/ FOLIC ACID TABLET (FP) PO SCH (10:10)
[2018-03-03] MEDS: ASPIRIN 81 MG CHEWABLE TABLETS PO SCH (10:10)
--- NOTE | 2018-03-03 10:20 | PN ---
[facility] CIWA - CIWA Score Nausea/Vomitin-No Nausea/No Vomiting Muscle Tremors: 3 Anxiety: 3 Agitation: 3 Paroxysmal Sweats: 1-Minimal Palms Moist Orientation: 0-Oriented Tacttile Disturbances: 1-Very Mild Itch/Numbness Auditory Disturbances: 0-None Visual Disturbances: 0-None Headache: 1-Very Mild CIWA-Ar Total Score: 12 [facility] Progress Note (SOAP) Subjective: MILD HEADACHE TREMOR SWEAT RESTLESSNESS IRRITABLE ANXIETY Objective: 03/03/18 10:19 Vital Signs Temperature 96.1 F L 03/03/18 07:44 Pulse Rate 59 L 03/03/18 07:44 Respiratory Rate 18 03/03/18 07:44 Blood Pressure 110/55 03/03/18 07:44 O2 Sat by Pulse Oximetry (%) Laboratory Last Values WBC 4.4 K/mm3 (4.0-10.0) 03/02/18 07:00 RBC 3.51 M/mm3 (3.60-5.2) L 03/02/18 07:00 Hgb 11.2 GM/dL (10.7-15.3) 03/02/18 07:00 Hct 32.8 % (32.4-45.2) 03/02/18 07:00 MCV 93.3 fl (80-96) 03/02/18 07:00 MCH 31.8 pg (25.7-33.7) 03/02/18 07:00 MCHC 34.1 g/dl (32.0-36.0) 03/02/18 07:00 RDW 13.9 % (11.6-15.6) 03/02/18 07:00 Plt Count 139 K/MM3 (134-434) 03/02/18 07:00 MPV 7.0 fl (7.5-11.1) L 03/02/18 07:00 Sodium 147 mmol/L (136-145) H 03/02/18 08:30 Potassium 3.7 mmol/L (3.5-5.1) 03/02/18 08:30 Chloride 107 mmol/L (98-107) 03/02/18 08:30 Carbon Dioxide 32 mmol/L (21-32) 03/02/18 08:30 Anion Gap 8 (8-16) 03/02/18 08:30 BUN 14 mg/dL (7-18) 03/02/18 08:30 Creatinine 0.9 mg/dL (0.55-1.02) 03/02/18 08:30 Creat Clearance w eGFR > 60 (>60) 03/02/18 08:30 POC Glucometer 126 UNITS (80-120) 03/03/18 06:39 Random Glucose 71 mg/dL (74-106) L 03/02/18 08:30 Calcium 9.1 mg/dL (8.5-10.1) 03/02/18 08:30 Total Bilirubin 0.6 mg/dL (0.2-1.0) 03/02/18 08:30 AST 30 U/L (15-37) 03/02/18 08:30 ALT 26 U/L (12-78) 03/02/18 08:30 Alkaline Phosphatase 57 U/L (45-117) 03/02/18 08:30 Total Protein 6.1 g/dl (6.4-8.2) L 03/02/18 08:30 Albumin 3.4 g/dl (3.4-5.0) 03/02/18 08:30 Urine Color Yellow 03/02/18 11:10 Urine Appearance Clear 03/02/18 11:10 Urine pH 5.0 (5.0-8.0) 03/02/18 11:10 Ur Specific [place] 1.029 (1.001-1.035) 03/02/18 11:10 Urine Protein Negative (NEGATIVE) 03/02/18 11:10 Urine Glucose (UA) Negative (NEGATIVE) 03/02/18 11:10 Urine Ketones Negative (NEGATIVE) 03/02/18 11:10 Urine Blood Negative (NEGATIVE) 03/02/18 11:10 Urine Nitrite Negative (NEGATIVE) 03/02/18 11:10 Urine Bilirubin Negative (<2.0 mg/dL) 03/02/18 11:10 Urine Urobilinogen 4.0 e.u/dl mg/dL (0.2-1.0) H 03/02/18 11:10 Ur Leukocyte Esterase 1+ (NEGATIVE) H 03/02/18 11:10 Urine WBC (Auto) 5-8 /hpf (3-5) 03/02/18 11:10 Urine RBC (Auto) 0-3 /hpf (0-3) 03/02/18 11:10 Ur Epithelial Cells Rare /HPF (FEW) 03/02/18 11:10 Hyaline Casts 1 /lpf 03/02/18 11:10 Urine Mucus Rare 03/02/18 11:10 RPR Titer Nonreactive (NONREACTIVE) 03/02/18 07:00 HIV 1&2 Antibody Screen Negative 03/02/18 07:00 HIV P24 Antigen Negative 03/02/18 07:00 LAB NOTED Assessment: 03/03/18 10:19 WITHDRAWAL SX Plan: CONTINUE DETOX
--- NOTE | 2018-03-03 12:12 | EKG ---
Test Reason : Blood Pressure : / mmHG Vent. Rate : 060 BPM Atrial Rate : 060 BPM P-R Int : 124 ms QRS Dur : 078 ms QT Int : 454 ms P-R-T Axes : 081 043 041 degrees QTc Int : 454 ms POOR DATA QUALITY, INTERPRETATION MAY BE ADVERSELY AFFECTED NORMAL SINUS RHYTHM WITH SINUS ARRHYTHMIA POSSIBLE LEFT ATRIAL ENLARGEMENT NONSPECIFIC ST AND T WAVE ABNORMALITY ABNORMAL ECG WHEN COMPARED WITH ECG OF 01-MAR-2018 16:49, PREMATURE VENTRICULAR COMPLEXES ARE NO LONGER PRESENT QT HAS SHORTENED Confirmed by LITZY RUBIN MD ([id number]) on 03/03/2018 12:12:09 PM Referred By: Confirmed By:LITZY RUBIN MD
[2018-03-03] MEDS: chlordiazePOXIDE 5 MG CAPSULE PO SCH ×2 (17:30→22:18)
[2018-03-03] MEDS: THIAMINE HCL 100 MG TABLET (FP) PO SCH (22:18)
[2018-03-03] MEDS: INSULIN (LEVEMIR) 100 UNITS/ML UNITS SQ SCH (22:18)
[2018-03-03] MEDS: ATORVASTATIN CA 40 MG TABLET (FP) PO SCH (22:19)
[2018-03-04] MEDS ORDERED: METHADONE HCL 10 MG TABLET ONE (04:25)
[2018-03-04] MEDS ORDERED: METHADONE HCL 40 MG DISPERSABLE TABLET ONE (04:25)
[2018-03-04] MEDS: chlordiazePOXIDE 5 MG CAPSULE PO SCH ×2 (05:17→10:30)
[2018-03-04] MEDS: METHADONE 80 MG, METHADONE 10 MG PO SCH (05:18)
[2018-03-04] MEDS: PRENATAL VITAMINS W/ FOLIC ACID TABLET (FP) PO SCH (10:29)
[2018-03-04] MEDS: amLODIPine BESYLATE 10 MG TABLET (FP) PO SCH (10:29)
[2018-03-04] MEDS: ASPIRIN 81 MG CHEWABLE TABLETS PO SCH (10:30)
[2018-03-04] MEDS: LIDOCAINE 5% TOPICAL PATCH TP SCH (10:30)
[2018-03-04] MEDS: LISINOPRIL 20 MG TABLET (FP) PO SCH (10:30)
--- NOTE | 2018-03-04 11:07 | PN ---
S Progress Note Note: c/o of back pain , headache, interrupted sleep. Denies noe pain, visual changes or vertigo. Vital Signs Temperature 97.1 F L 03/04/18 10:19 Pulse Rate 64 03/04/18 10:19 Respiratory Rate 18 03/04/18 10:19 Blood Pressure 150/72 03/04/18 10:19 O2 Sat by Pulse Oximetry (%) Laboratory Last Values WBC 4.4 K/mm3 (4.0-10.0) 03/02/18 07:00 RBC 3.51 M/mm3 (3.60-5.2) L 03/02/18 07:00 Hgb 11.2 GM/dL (10.7-15.3) 03/02/18 07:00 Hct 32.8 % (32.4-45.2) 03/02/18 07:00 MCV 93.3 fl (80-96) 03/02/18 07:00 MCH 31.8 pg (25.7-33.7) 03/02/18 07:00 MCHC 34.1 g/dl (32.0-36.0) 03/02/18 07:00 RDW 13.9 % (11.6-15.6) 03/02/18 07:00 Plt Count 139 K/MM3 (134-434) 03/02/18 07:00 MPV 7.0 fl (7.5-11.1) L 03/02/18 07:00 Sodium 147 mmol/L (136-145) H 03/02/18 08:30 Potassium 3.7 mmol/L (3.5-5.1) 03/02/18 08:30 Chloride 107 mmol/L (98-107) 03/02/18 08:30 Carbon Dioxide 32 mmol/L (21-32) 03/02/18 08:30 Anion Gap 8 (8-16) 03/02/18 08:30 BUN 14 mg/dL (7-18) 03/02/18 08:30 Creatinine 0.9 mg/dL (0.55-1.02) 03/02/18 08:30 Creat Clearance w eGFR > 60 (>60) 03/02/18 08:30 POC Glucometer 118 UNITS (80-120) 03/04/18 05:16 Random Glucose 71 mg/dL (74-106) L 03/02/18 08:30 Calcium 9.1 mg/dL (8.5-10.1) 03/02/18 08:30 Total Bilirubin 0.6 mg/dL (0.2-1.0) 03/02/18 08:30 AST 30 U/L (15-37) 03/02/18 08:30 ALT 26 U/L (12-78) 03/02/18 08:30 Alkaline Phosphatase 57 U/L (45-117) 03/02/18 08:30 Total Protein 6.1 g/dl (6.4-8.2) L 03/02/18 08:30 Albumin 3.4 g/dl (3.4-5.0) 03/02/18 08:30 Urine Color Yellow 03/02/18 11:10 Urine Appearance Clear 03/02/18 11:10 Urine pH 5.0 (5.0-8.0) 03/02/18 11:10 Ur Specific [place] 1.029 (1.001-1.035) 03/02/18 11:10 Urine Protein Negative (NEGATIVE) 03/02/18 11:10 Urine Glucose (UA) Negative (NEGATIVE) 03/02/18 11:10 Urine Ketones Negative (NEGATIVE) 03/02/18 11:10 Urine Blood Negative (NEGATIVE) 03/02/18 11:10 Urine Nitrite Negative (NEGATIVE) 03/02/18 11:10 Urine Bilirubin Negative (<2.0 mg/dL) 03/02/18 11:10 Urine Urobilinogen 4.0 e.u/dl mg/dL (0.2-1.0) H 03/02/18 11:10 Ur Leukocyte Esterase 1+ (NEGATIVE) H 03/02/18 11:10 Urine WBC (Auto) 5-8 /hpf (3-5) 03/02/18 11:10 Urine RBC (Auto) 0-3 /hpf (0-3) 03/02/18 11:10 Ur Epithelial Cells Rare /HPF (FEW) 03/02/18 11:10 Hyaline Casts 1 /lpf 03/02/18 11:10 Urine Mucus Rare 03/02/18 11:10 RPR Titer Nonreactive (NONREACTIVE) 03/02/18 07:00 HIV 1&2 Antibody Screen Negative 03/02/18 07:00 HIV P24 Antigen Negative 03/02/18 07:00 AOx3 no distress no adventitious breath sounds full ROM ambulating in the unit + back pain + headache Plan: ibuprofen PRN for headache increase fluids lidocaine patch for pain continue to monitor
[2018-03-04] MEDS: chlordiazePOXIDE HCL 10 MG CAPSULE PO SCH ×2 (17:25→22:21)
[2018-03-04] MEDS ORDERED: LIDOCAINE PATCH REMOVAL MC SCH (22:00)
[2018-03-04] MEDS: THIAMINE HCL 100 MG TABLET (FP) PO SCH (22:21)
[2018-03-04] MEDS: INSULIN (LEVEMIR) 100 UNITS/ML UNITS SQ SCH (22:22)
[2018-03-04] MEDS: ATORVASTATIN CA 40 MG TABLET (FP) PO SCH (22:22)
[2018-03-05] MEDS ORDERED: METHADONE HCL 10 MG TABLET ONE (04:27)
[2018-03-05] MEDS ORDERED: METHADONE HCL 40 MG DISPERSABLE TABLET ONE (04:27)
[2018-03-05] MEDS: chlordiazePOXIDE HCL 10 MG CAPSULE PO SCH ×2 (05:21→10:33)
[2018-03-05] MEDS: METHADONE 80 MG, METHADONE 10 MG PO SCH (05:21)
[2018-03-05 09:53] VITALS: BP 132/71; PULSE 70; TEMP 99.3
[2018-03-05] MEDS: amLODIPine BESYLATE 10 MG TABLET (FP) PO SCH (10:33)
[2018-03-05] MEDS: LISINOPRIL 20 MG TABLET (FP) PO SCH (10:33)
[2018-03-05] MEDS: PRENATAL VITAMINS W/ FOLIC ACID TABLET (FP) PO SCH (10:33)
[2018-03-05] MEDS: ASPIRIN 81 MG CHEWABLE TABLETS PO SCH (10:33)
[2018-03-05] MEDS: LIDOCAINE 5% TOPICAL PATCH TP SCH (10:34)
--- NOTE | 2018-03-05 14:51 | PN ---
S Progress Note (SOAP) Subjective: denies any new complain Objective: 03/05/18 14:50 A & O x 3 Ambulates with walker without distress Vital Signs Temperature 99.3 F 03/05/18 09:52 Pulse Rate 70 03/05/18 09:52 Respiratory Rate 18 03/05/18 09:52 Blood Pressure 132/71 03/05/18 09:52 O2 Sat by Pulse Oximetry (%) Assessment: 03/05/18 14:50 detox successfully completed Plan: for discharge
--- NOTE | 2018-03-05 14:52 | DS ---
[facility] Detox Discharge Summary Admission Date: 03/01/18 Discharge Date: 03/05/18 - History Additional Comments: pt being d/c To continue aftercare in [facility] Pertinent Past History: DM 2 htn mmtp - Physical Exam Results Vital Signs: Vital Signs Temperature 99.3 F 03/05/18 09:52 Pulse Rate 70 03/05/18 09:52 Respiratory Rate 18 03/05/18 09:52 Blood Pressure 132/71 03/05/18 09:52 O2 Sat by Pulse Oximetry (%) Pertinent Admission Physical Exam Findings: withdrawal sx - Treatment Hospital Course: Detox Protocol Followed, Detoxed Safely, Responded well, Discharged Condition Good, Rehab Referral Accepted Patient has Accepted a Rehab Referral to: [facility] Rehab - Medication Discharge Medications: Ambulatory Orders Metformin HCl [Metformin HCl ER] 1,000 mg PO DAILY #30 tab.er.[email or web address] 10/26/15 Amlodipine Besylate [Norvasc -] 10 mg PO DAILY 03/01/18 Atorvastatin Calcium 40 mg PO HS 03/01/18 Famotidine 20 mg PO BID 03/01/18 Insulin Glargine,Hum.rec.anlog [Mikael Allen U-100] 8 unit SQ HS 03/01/18 Lisinopril [Prinivil -] 40 mg PO DAILY 03/01/18 Methadone [Dolophine -] 90 mg PO DAILY@0600 03/02/18 - AMA Did Patient Leave Against Medical Advice: No
== END 2018-03-05 11:11 | disposition other institution (70) | DRG 773 ==
LOC: YASAS 11:15 → Y6N 16:30
PROVIDERS: ADMIT Surgery; ATTEND Surgery
PROC: HZ2ZZZZ Detoxification Services for Substance Abuse Treatment (ICD-10-PCS; principal; 2018-03-01)
DX: F11.20 Opioid dependence, uncomplicated (principal); F13.230 Sedative, hypnotic or anxiolytic dependence with withdrawal, uncomplicated; F10.230 Alcohol dependence with withdrawal, uncomplicated; F14.20 Cocaine dependence, uncomplicated; I10 Essential (primary) hypertension; E78.00 Pure hypercholesterolemia, unspecified; E11.9 Type 2 diabetes mellitus without complications; Z79.4 Long term (current) use of insulin; Z79.84 Long term (current) use of oral hypoglycemic drugs; B18.2 Chronic viral hepatitis C; R26.2 Difficulty in walking, not elsewhere classified; Z99.89 Dependence on other enabling machines and devices; Z91.5 Personal history of self-harm
CPT/HCPCS: 36415; 80053; 81003; 81015; 82962; 85027; 86593; 87389; 93005; 93010

== ENCOUNTER 2018-03-05 11:21 | Inpatient (IN) | payer OTHER ==
[2018-03-05] MEDS ORDERED: IBUPROFEN 400 MG TABLET (FP) PO PRN (15:12)
[2018-03-05] MEDS ORDERED: ACETAMINOPHEN 325 MG TABLET (FP) PO PRN (15:12)
[2018-03-05] MEDS ORDERED: LOPERAMIDE HCL 2 MG CAPSULE PO PRN (15:12)
[2018-03-05] MEDS ORDERED: MAGNESIUM HYDROX 2400MG/30ML ORAL SUSPENSION 30 ML CUP PO PRN (15:12)
[2018-03-05] MEDS ORDERED: P-EPHED 60MG/TRIPROLIDI 2.5MG TABLET PO PRN (15:12)
[2018-03-05] MEDS ORDERED: MENTHOL/PHENOL 1 EACH UD MM PRN (15:12)
[2018-03-05] MEDS ORDERED: hydrOXYzine PAMOATE 50 MG CAPSULE (FP) PO PRN (15:12)
[2018-03-05] MEDS ORDERED: NICOTINE POLACRILEX 2 MG GUM BUC PRN (15:12)
[2018-03-05] MEDS ORDERED: MAGNESIUM CITRATE 300 ML BOTTLE PO PRN (15:12)
[2018-03-05] MEDS ORDERED: guaiFENesin/D-METHORPHAN HB 10 ML UNIT-DOSE CUPS PO PRN (15:12)
[2018-03-05] MEDS ORDERED: INSULIN SLIDING SCALE (NOVOLOG) 1 VIAL SQ SCH (16:30)
[2018-03-05] MEDS ORDERED: INSULIN (NOVOLOG) ASPART 100 UNITS/ML 10ML VIAL ONE (16:44)
[2018-03-05] MEDS: INSULIN SLIDING SCALE (NOVOLOG) 1 VIAL SQ SCH (16:55)
[2018-03-05] MEDS: RANITIDINE HCL 150 MG TABLET (FP) PO SCH (21:16)
[2018-03-05] MEDS: THIAMINE HCL 100 MG TABLET (FP) PO SCH (21:16)
[2018-03-05] MEDS: ATORVASTATIN CA 40 MG TABLET (FP) PO SCH (21:16)
[2018-03-05] MEDS: MELATONIN 5 MG TABLETS PO PRN (21:17)
[2018-03-05] MEDS: INSULIN (LEVEMIR) 100 UNITS/ML UNITS SQ SCH (21:18)
[2018-03-05] MEDS: LIDOCAINE PATCH REMOVAL MC SCH (21:18)
[2018-03-05] MEDS ORDERED: PT OWN MED DRAWER 7, Y5N ONE (23:35)
[2018-03-06] MEDS ORDERED: METHADONE HCL 40 MG DISPERSABLE TABLET PO SCH (06:00)
[2018-03-06] MEDS: metFORMIN HCL 500 MG TABLET (FP) PO SCH (06:24)
[2018-03-06] MEDS: INSULIN SLIDING SCALE (NOVOLOG) 1 VIAL SQ SCH ×2 (06:27→16:48)
[2018-03-06] MEDS ORDERED: METHADONE HCL 10 MG TABLET ONE (06:49)
[2018-03-06] MEDS ORDERED: METHADONE HCL 40 MG DISPERSABLE TABLET ONE (06:50)
[2018-03-06] MEDS: METHADONE 80 MG, METHADONE 10 MG PO SCH (06:53)
--- NOTE | 2018-03-06 09:20 | PN ---
[facility] Progress Note Note: Pt had an episode of vomiting. Zofran IM ordered
[2018-03-06] MEDS ORDERED: ONDANSETRON 4 MG/2 ML VIAL IM ONE (10:00)
[2018-03-06] MEDS: LIDOCAINE 5% TOPICAL PATCH TP SCH (10:10)
[2018-03-06] MEDS: ASPIRIN 81 MG CHEWABLE TABLETS PO SCH (10:25)
[2018-03-06] MEDS: LISINOPRIL 20 MG TABLET (FP) PO SCH (10:25)
[2018-03-06] MEDS: amLODIPine BESYLATE 10 MG TABLET (FP) PO SCH (10:26)
[2018-03-06] MEDS: RANITIDINE HCL 150 MG TABLET (FP) PO SCH ×2 (10:26→21:34)
[2018-03-06] MEDS: PRENATAL VITAMINS W/ FOLIC ACID TABLET (FP) PO SCH (10:26)
[2018-03-06] MEDS: NICOTINE 21 MG/24 HOURS TOPICAL PATCH TD SCH (10:26)
[2018-03-06] MEDS: TRIMETHOBENZAMIDE HCL 200MG/2ML INJ IM PRN ×2 (10:30→18:42)
[2018-03-06] MEDS: THIAMINE HCL 100 MG TABLET (FP) PO SCH (21:34)
[2018-03-06] MEDS: ATORVASTATIN CA 40 MG TABLET (FP) PO SCH (21:34)
[2018-03-06] MEDS: LIDOCAINE PATCH REMOVAL MC SCH (21:34)
[2018-03-06] MEDS: INSULIN (LEVEMIR) 100 UNITS/ML UNITS SQ SCH (21:46)
[2018-03-07] MEDS ORDERED: METHADONE HCL 40 MG DISPERSABLE TABLET ONE (04:02)
[2018-03-07] MEDS ORDERED: METHADONE HCL 10 MG TABLET ONE (04:02)
[2018-03-07] MEDS: METHADONE 80 MG, METHADONE 10 MG PO SCH (06:48)
[2018-03-07] MEDS: metFORMIN HCL 500 MG TABLET (FP) PO SCH (06:49)
[2018-03-07] MEDS: INSULIN SLIDING SCALE (NOVOLOG) 1 VIAL SQ SCH ×2 (07:04→17:06)
[2018-03-07] MEDS: amLODIPine BESYLATE 10 MG TABLET (FP) PO SCH (09:53)
[2018-03-07] MEDS: RANITIDINE HCL 150 MG TABLET (FP) PO SCH ×2 (09:54→21:26)
[2018-03-07] MEDS: LISINOPRIL 20 MG TABLET (FP) PO SCH (09:54)
[2018-03-07] MEDS: NICOTINE 21 MG/24 HOURS TOPICAL PATCH TD SCH (09:57)
[2018-03-07] MEDS: LIDOCAINE 5% TOPICAL PATCH TP SCH (09:57)
[2018-03-07] MEDS: PRENATAL VITAMINS W/ FOLIC ACID TABLET (FP) PO SCH (09:57)
[2018-03-07] MEDS: ASPIRIN 81 MG CHEWABLE TABLETS PO SCH (10:51)
[2018-03-07] MEDS: MAG HYDROX/AL HYDROX/SIMETH 30 ML UNIT-DOSE CUP PO PRN (17:09)
[2018-03-07] MEDS: THIAMINE HCL 100 MG TABLET (FP) PO SCH (21:25)
[2018-03-07] MEDS: ATORVASTATIN CA 40 MG TABLET (FP) PO SCH (21:26)
[2018-03-07] MEDS: LIDOCAINE PATCH REMOVAL MC SCH (21:26)
[2018-03-07] MEDS: INSULIN (LEVEMIR) 100 UNITS/ML UNITS SQ SCH (21:27)
[2018-03-07] MEDS: MELATONIN 5 MG TABLETS PO PRN (21:27)
[2018-03-08] MEDS ORDERED: METHADONE HCL 10 MG TABLET ONE (05:58)
[2018-03-08] MEDS ORDERED: METHADONE HCL 40 MG DISPERSABLE TABLET ONE (05:58)
[2018-03-08] MEDS: metFORMIN HCL 500 MG TABLET (FP) PO SCH (06:44)
[2018-03-08] MEDS: METHADONE 80 MG, METHADONE 10 MG PO SCH (06:45)
[2018-03-08] MEDS: INSULIN SLIDING SCALE (NOVOLOG) 1 VIAL SQ SCH ×2 (08:02→17:09)
[2018-03-08] MEDS: LIDOCAINE 5% TOPICAL PATCH TP SCH (10:00)
[2018-03-08] MEDS: amLODIPine BESYLATE 10 MG TABLET (FP) PO SCH (10:00)
[2018-03-08] MEDS: NICOTINE 21 MG/24 HOURS TOPICAL PATCH TD SCH (10:00)
[2018-03-08] MEDS: ASPIRIN 81 MG CHEWABLE TABLETS PO SCH (10:00)
[2018-03-08] MEDS: PRENATAL VITAMINS W/ FOLIC ACID TABLET (FP) PO SCH (10:01)
[2018-03-08] MEDS: LISINOPRIL 20 MG TABLET (FP) PO SCH (10:01)
[2018-03-08] MEDS: RANITIDINE HCL 150 MG TABLET (FP) PO SCH ×2 (10:01→21:32)
[2018-03-08] MEDS: THIAMINE HCL 100 MG TABLET (FP) PO SCH (21:32)
[2018-03-08] MEDS: ATORVASTATIN CA 40 MG TABLET (FP) PO SCH (21:33)
[2018-03-08] MEDS: INSULIN (LEVEMIR) 100 UNITS/ML UNITS SQ SCH (21:33)
[2018-03-08] MEDS: LIDOCAINE PATCH REMOVAL MC SCH (21:33)
[2018-03-08] MEDS: MELATONIN 5 MG TABLETS PO PRN (21:34)
[2018-03-09] MEDS ORDERED: METHADONE HCL 10 MG TABLET ONE (03:54)
[2018-03-09] MEDS ORDERED: METHADONE HCL 40 MG DISPERSABLE TABLET ONE (03:55)
[2018-03-09] MEDS: METHADONE 80 MG, METHADONE 10 MG PO SCH (06:23)
[2018-03-09] MEDS: INSULIN SLIDING SCALE (NOVOLOG) 1 VIAL SQ SCH ×2 (07:10→17:09)
[2018-03-09] MEDS: metFORMIN HCL 500 MG TABLET (FP) PO SCH (07:10)
[2018-03-09] MEDS: MAG HYDROX/AL HYDROX/SIMETH 30 ML UNIT-DOSE CUP PO PRN (10:06)
[2018-03-09] MEDS: PRENATAL VITAMINS W/ FOLIC ACID TABLET (FP) PO SCH (10:26)
[2018-03-09] MEDS: ASPIRIN 81 MG CHEWABLE TABLETS PO SCH (10:26)
[2018-03-09] MEDS: LIDOCAINE 5% TOPICAL PATCH TP SCH (10:26)
[2018-03-09] MEDS: RANITIDINE HCL 150 MG TABLET (FP) PO SCH ×2 (10:26→21:17)
[2018-03-09] MEDS: LISINOPRIL 20 MG TABLET (FP) PO SCH (10:26)
[2018-03-09] MEDS: amLODIPine BESYLATE 10 MG TABLET (FP) PO SCH (10:26)
[2018-03-09] MEDS: NICOTINE 21 MG/24 HOURS TOPICAL PATCH TD SCH (10:27)
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
[2018-03-09] MEDS: ATORVASTATIN CA 40 MG TABLET (FP) PO SCH (21:17)
[2018-03-09] MEDS: LIDOCAINE PATCH REMOVAL MC SCH (21:17)
[2018-03-09] MEDS: INSULIN (LEVEMIR) 100 UNITS/ML UNITS SQ SCH (21:17)
[2018-03-09] MEDS: THIAMINE HCL 100 MG TABLET (FP) PO SCH (21:17)
[2018-03-09] MEDS ORDERED: INSULIN (LEVEMIR) 100 UNITS/ML UNITS SQ ONE (21:46)
[2018-03-10] MEDS ORDERED: METHADONE HCL 10 MG TABLET ONE (02:42)
[2018-03-10] MEDS ORDERED: METHADONE HCL 40 MG DISPERSABLE TABLET ONE (02:42)
[2018-03-10] MEDS: METHADONE 80 MG, METHADONE 10 MG PO SCH (06:27)
[2018-03-10] MEDS: metFORMIN HCL 500 MG TABLET (FP) PO SCH (06:27)
[2018-03-10] MEDS: INSULIN SLIDING SCALE (NOVOLOG) 1 VIAL SQ SCH ×2 (06:29→17:03)
[2018-03-10] MEDS: amLODIPine BESYLATE 10 MG TABLET (FP) PO SCH (09:57)
[2018-03-10] MEDS: RANITIDINE HCL 150 MG TABLET (FP) PO SCH ×2 (09:57→21:28)
[2018-03-10] MEDS: PRENATAL VITAMINS W/ FOLIC ACID TABLET (FP) PO SCH (09:57)
[2018-03-10] MEDS: ASPIRIN 81 MG CHEWABLE TABLETS PO SCH (09:57)
[2018-03-10] MEDS: NICOTINE 21 MG/24 HOURS TOPICAL PATCH TD SCH (09:58)
[2018-03-10] MEDS: LIDOCAINE 5% TOPICAL PATCH TP SCH (09:58)
[2018-03-10] MEDS: LISINOPRIL 20 MG TABLET (FP) PO SCH (10:21)
[2018-03-10] MEDS: ATORVASTATIN CA 40 MG TABLET (FP) PO SCH (21:28)
[2018-03-10] MEDS: THIAMINE HCL 100 MG TABLET (FP) PO SCH (21:28)
[2018-03-10] MEDS: INSULIN (LEVEMIR) 100 UNITS/ML UNITS SQ SCH (21:29)
[2018-03-10] MEDS: LIDOCAINE PATCH REMOVAL MC SCH (21:29)
[2018-03-11] MEDS ORDERED: METHADONE HCL 10 MG TABLET ONE (05:46)
[2018-03-11] MEDS ORDERED: METHADONE HCL 40 MG DISPERSABLE TABLET ONE (05:46)
[2018-03-11] MEDS: METHADONE 80 MG, METHADONE 10 MG PO SCH (06:05)
[2018-03-11] MEDS: metFORMIN HCL 500 MG TABLET (FP) PO SCH (06:07)
[2018-03-11] MEDS: INSULIN SLIDING SCALE (NOVOLOG) 1 VIAL SQ SCH ×2 (07:14→16:37)
[2018-03-11] MEDS: PRENATAL VITAMINS W/ FOLIC ACID TABLET (FP) PO SCH (10:09)
[2018-03-11] MEDS: NICOTINE 21 MG/24 HOURS TOPICAL PATCH TD SCH (10:09)
[2018-03-11] MEDS: RANITIDINE HCL 150 MG TABLET (FP) PO SCH ×2 (10:09→21:26)
[2018-03-11] MEDS: LIDOCAINE 5% TOPICAL PATCH TP SCH (10:09)
[2018-03-11] MEDS: ASPIRIN 81 MG CHEWABLE TABLETS PO SCH (10:09)
[2018-03-11] MEDS: amLODIPine BESYLATE 10 MG TABLET (FP) PO SCH (10:10)
[2018-03-11] MEDS: LISINOPRIL 20 MG TABLET (FP) PO SCH (10:10)
[2018-03-11] MEDS: THIAMINE HCL 100 MG TABLET (FP) PO SCH (21:22)
[2018-03-11] MEDS: MELATONIN 5 MG TABLETS PO PRN (21:23)
[2018-03-11] MEDS: INSULIN (LEVEMIR) 100 UNITS/ML UNITS SQ SCH (21:25)
[2018-03-11] MEDS: LIDOCAINE PATCH REMOVAL MC SCH (21:26)
[2018-03-11] MEDS: ATORVASTATIN CA 40 MG TABLET (FP) PO SCH (21:26)
[2018-03-11] MEDS ORDERED: PT OWN MED DRAWER 7, Y5N ONE (23:33)
[2018-03-12] MEDS ORDERED: METHADONE HCL 10 MG TABLET ONE (05:54)
[2018-03-12] MEDS ORDERED: METHADONE HCL 40 MG DISPERSABLE TABLET ONE (05:54)
[2018-03-12] MEDS: metFORMIN HCL 500 MG TABLET (FP) PO SCH (06:41)
[2018-03-12] MEDS: METHADONE 80 MG, METHADONE 10 MG PO SCH (06:42)
[2018-03-12] MEDS: INSULIN SLIDING SCALE (NOVOLOG) 1 VIAL SQ SCH ×2 (07:38→17:02)
[2018-03-12] MEDS: LIDOCAINE 5% TOPICAL PATCH TP SCH (09:56)
[2018-03-12] MEDS: NICOTINE 21 MG/24 HOURS TOPICAL PATCH TD SCH (09:57)
[2018-03-12] MEDS: ASPIRIN 81 MG CHEWABLE TABLETS PO SCH (09:57)
[2018-03-12] MEDS: RANITIDINE HCL 150 MG TABLET (FP) PO SCH ×2 (09:57→21:47)
[2018-03-12] MEDS: LISINOPRIL 20 MG TABLET (FP) PO SCH (09:57)
[2018-03-12] MEDS: amLODIPine BESYLATE 10 MG TABLET (FP) PO SCH (09:57)
[2018-03-12] MEDS: PRENATAL VITAMINS W/ FOLIC ACID TABLET (FP) PO SCH (09:57)
[2018-03-12] MEDS: THIAMINE HCL 100 MG TABLET (FP) PO SCH (21:46)
[2018-03-12] MEDS: MELATONIN 5 MG TABLETS PO PRN (21:47)
[2018-03-12] MEDS: LIDOCAINE PATCH REMOVAL MC SCH (21:48)
[2018-03-12] MEDS: ATORVASTATIN CA 40 MG TABLET (FP) PO SCH (21:48)
[2018-03-12] MEDS: INSULIN (LEVEMIR) 100 UNITS/ML UNITS SQ SCH (21:51)
[2018-03-13] MEDS ORDERED: METHADONE HCL 10 MG TABLET ONE (05:57)
[2018-03-13] MEDS ORDERED: METHADONE HCL 40 MG DISPERSABLE TABLET ONE (05:58)
[2018-03-13] MEDS: METHADONE 80 MG, METHADONE 10 MG PO SCH ×2 (06:10→08:00)
[2018-03-13] MEDS: metFORMIN HCL 500 MG TABLET (FP) PO SCH (06:35)
[2018-03-13] MEDS: INSULIN SLIDING SCALE (NOVOLOG) 1 VIAL SQ SCH ×2 (06:36→16:51)
[2018-03-13] MEDS: RANITIDINE HCL 150 MG TABLET (FP) PO SCH ×2 (10:14→21:40)
[2018-03-13] MEDS: LIDOCAINE 5% TOPICAL PATCH TP SCH (10:14)
[2018-03-13] MEDS: PRENATAL VITAMINS W/ FOLIC ACID TABLET (FP) PO SCH (10:14)
[2018-03-13] MEDS: ASPIRIN 81 MG CHEWABLE TABLETS PO SCH (10:14)
[2018-03-13] MEDS: amLODIPine BESYLATE 10 MG TABLET (FP) PO SCH (10:14)
[2018-03-13] MEDS: NICOTINE 21 MG/24 HOURS TOPICAL PATCH TD SCH (10:14)
[2018-03-13] MEDS: LISINOPRIL 20 MG TABLET (FP) PO SCH (10:15)
[2018-03-13] MEDS: THIAMINE HCL 100 MG TABLET (FP) PO SCH (21:40)
[2018-03-13] MEDS: INSULIN (LEVEMIR) 100 UNITS/ML UNITS SQ SCH (21:41)
[2018-03-13] MEDS: LIDOCAINE PATCH REMOVAL MC SCH (21:41)
[2018-03-13] MEDS: ATORVASTATIN CA 40 MG TABLET (FP) PO SCH (21:41)
[2018-03-13] MEDS: MELATONIN 5 MG TABLETS PO PRN (21:41)
[2018-03-14] MEDS ORDERED: METHADONE HCL 40 MG DISPERSABLE TABLET ONE (03:31)
[2018-03-14] MEDS ORDERED: METHADONE HCL 10 MG TABLET ONE (03:31)
[2018-03-14] MEDS ORDERED: METHADONE HCL 10 MG TABLET PO SCH (06:00)
[2018-03-14] MEDS: INSULIN SLIDING SCALE (NOVOLOG) 1 VIAL SQ SCH ×2 (06:29→16:53)
[2018-03-14] MEDS: METHADONE 80 MG, METHADONE 10 MG PO SCH (06:29)
[2018-03-14] MEDS: metFORMIN HCL 500 MG TABLET (FP) PO SCH (06:29)
[2018-03-14] MEDS: MAG HYDROX/AL HYDROX/SIMETH 30 ML UNIT-DOSE CUP PO PRN (10:07)
[2018-03-14] MEDS: LISINOPRIL 20 MG TABLET (FP) PO SCH (10:07)
[2018-03-14] MEDS: PRENATAL VITAMINS W/ FOLIC ACID TABLET (FP) PO SCH (10:07)
[2018-03-14] MEDS: LIDOCAINE 5% TOPICAL PATCH TP SCH (10:08)
[2018-03-14] MEDS: amLODIPine BESYLATE 10 MG TABLET (FP) PO SCH (10:08)
[2018-03-14] MEDS: RANITIDINE HCL 150 MG TABLET (FP) PO SCH ×2 (10:08→21:27)
[2018-03-14] MEDS: ASPIRIN 81 MG CHEWABLE TABLETS PO SCH (10:08)
[2018-03-14] MEDS: NICOTINE 21 MG/24 HOURS TOPICAL PATCH TD SCH (10:44)
[2018-03-14] MEDS: INSULIN (LEVEMIR) 100 UNITS/ML UNITS SQ SCH (21:26)
[2018-03-14] MEDS: THIAMINE HCL 100 MG TABLET (FP) PO SCH (21:27)
[2018-03-14] MEDS: ATORVASTATIN CA 40 MG TABLET (FP) PO SCH (21:27)
[2018-03-14] MEDS: LIDOCAINE PATCH REMOVAL MC SCH (21:28)
[2018-03-15] MEDS ORDERED: METHADONE HCL 10 MG TABLET ONE (05:49)
[2018-03-15] MEDS ORDERED: METHADONE HCL 40 MG DISPERSABLE TABLET ONE (05:50)
[2018-03-15] MEDS: metFORMIN HCL 500 MG TABLET (FP) PO SCH (06:07)
[2018-03-15] MEDS: METHADONE 80 MG, METHADONE 10 MG PO SCH (06:07)
[2018-03-15] MEDS: INSULIN SLIDING SCALE (NOVOLOG) 1 VIAL SQ SCH ×2 (07:49→16:50)
[2018-03-15] MEDS ORDERED: INSULIN (NOVOLOG) ASPART 100 UNITS/ML 10ML VIAL ONE ×2 (07:51→21:55)
[2018-03-15] MEDS: ASPIRIN 81 MG CHEWABLE TABLETS PO SCH (10:17)
[2018-03-15] MEDS: NICOTINE 21 MG/24 HOURS TOPICAL PATCH TD SCH (10:18)
[2018-03-15] MEDS: LIDOCAINE 5% TOPICAL PATCH TP SCH (10:18)
[2018-03-15] MEDS: amLODIPine BESYLATE 10 MG TABLET (FP) PO SCH (10:18)
[2018-03-15] MEDS: LISINOPRIL 20 MG TABLET (FP) PO SCH (10:19)
[2018-03-15] MEDS: PRENATAL VITAMINS W/ FOLIC ACID TABLET (FP) PO SCH (10:19)
[2018-03-15] MEDS: RANITIDINE HCL 150 MG TABLET (FP) PO SCH ×2 (10:36→21:24)
[2018-03-15] MEDS: LIDOCAINE PATCH REMOVAL MC SCH (21:24)
[2018-03-15] MEDS: THIAMINE HCL 100 MG TABLET (FP) PO SCH (21:24)
[2018-03-15] MEDS: MELATONIN 5 MG TABLETS PO PRN (21:24)
[2018-03-15] MEDS: ATORVASTATIN CA 40 MG TABLET (FP) PO SCH (21:24)
[2018-03-15] MEDS: INSULIN (LEVEMIR) 100 UNITS/ML UNITS SQ SCH (21:25)
[2018-03-15] MEDS ORDERED: PT OWN MED DRAWER 7, Y5N ONE (21:55)
[2018-03-16] MEDS ORDERED: METHADONE HCL 10 MG TABLET ONE (03:27)
[2018-03-16] MEDS ORDERED: METHADONE HCL 40 MG DISPERSABLE TABLET ONE (03:27)
[2018-03-16] MEDS: METHADONE 80 MG, METHADONE 10 MG PO SCH (06:39)
[2018-03-16] MEDS: metFORMIN HCL 500 MG TABLET (FP) PO SCH (06:39)
[2018-03-16] MEDS: INSULIN SLIDING SCALE (NOVOLOG) 1 VIAL SQ SCH ×2 (06:40→16:34)
[2018-03-16] MEDS: LIDOCAINE 5% TOPICAL PATCH TP SCH (10:11)
[2018-03-16] MEDS: amLODIPine BESYLATE 10 MG TABLET (FP) PO SCH (10:12)
[2018-03-16] MEDS: NICOTINE 21 MG/24 HOURS TOPICAL PATCH TD SCH (10:12)
[2018-03-16] MEDS: ASPIRIN 81 MG CHEWABLE TABLETS PO SCH (10:12)
[2018-03-16] MEDS: RANITIDINE HCL 150 MG TABLET (FP) PO SCH ×2 (10:12→21:30)
[2018-03-16] MEDS: PRENATAL VITAMINS W/ FOLIC ACID TABLET (FP) PO SCH (10:12)
[2018-03-16] MEDS: LISINOPRIL 20 MG TABLET (FP) PO SCH (10:12)
--- NOTE | 2018-03-16 13:44 | PN ---
Psychiatric Progress Note Vital Signs: Vital Signs Period Temp Pulse Resp BP Sys/Chaudhary Pulse Ox Last 24 Hr 98.6 F 91-98 18-18 135-137/78-80 Date of Session: 03/16/18 Chief Complaint:: Disharge visit HPI: Patient addressed Opioid ,Anxiolytic and Alcohol dependence. ROS: Significant for HTN,DM,Hep C,Hyperlipidemia. Current Medications: Active Medications Generic Name Dose Route Start Last Admin Trade Name Freq PRN Reason Stop Dose Admin Acetaminophen 650 mg 03/05/18 15:12 Tylenol - PO Q4H PRN FEVER Al Hydroxide/Mg Hydroxide 30 ml 03/05/18 15:12 03/14/18 10:07 Mylanta Oral Suspension - PO 30 ml Q6H PRN Administration DYSPEPSIA Amlodipine Besylate 10 mg 03/06/18 10:00 03/16/18 10:12 Norvasc - PO 10 mg DAILY JANELLE Administration Aspirin 81 mg 03/06/18 10:00 03/16/18 10:12 Asa - PO 81 mg DAILY JANELLE Administration Atorvastatin Calcium 40 mg 03/05/18 22:00 03/15/18 21:24 Lipitor - PO 40 mg HS JANELLE Administration Eucalyptus/Menthol/Phenol/Sorbitol 1 each 03/05/18 15:12 Cepastat Lozenge - MM Q4H PRN SORE THROAT Guaifenesin 10 ml 03/05/18 15:12 Robitussin Dm - PO Q6H PRN COUGH Hydroxyzine Pamoate 50 mg 03/05/18 15:12 03/11/18 21:23 Vistaril - PO 50 mg Q4H PRN Administration AGITATION Ibuprofen 400 mg 03/05/18 15:12 03/10/18 01:27 Motrin - PO 400 mg Q6H PRN Administration Pain Level 4-6 Insulin Aspart 1 vial 03/05/18 16:30 03/16/18 06:40 Novolog Vial Sliding Scale - SQ Not Given [facility] Protocol Insulin Detemir 8 units 03/05/18 22:00 03/15/18 21:25 Levemir Vial SQ 8 units HS JANELLE Administration Lidocaine 1 patch 03/06/18 10:00 03/16/18 10:11 Lidoderm Patch - TP 1 patch DAILY JANELLE Administration Lisinopril 40 mg 03/06/18 10:00 03/16/18 10:12 Prinivil PO 40 mg DAILY JANELLE Administration Loperamide HCl 4 mg 03/05/18 15:12 03/06/18 12:22 Imodium - PO 4 mg Q6H PRN Administration DIARRHEA Magnesium Citrate 300 ml 03/05/18 15:12 Citroma - PO Q48H PRN CONSTIPATION Magnesium Hydroxide 30 ml 03/05/18 15:12 Milk Of Magnesia - PO DAILY PRN CONSTIPATION Melatonin 5 mg 03/05/18 22:00 03/15/18 21:24 Melatonin PO 5 mg HS PRN Administration INSOMNIA Metformin HCl 1,000 mg 03/06/18 07:00 03/16/18 06:39 Glucophage - PO 1,000 mg 0700 JANELLE Administration Methadone HCl 80 mg/ Methadone 90 mg 03/13/18 08:00 03/16/18 06:39 HCl 10 mg PO 90 mg DAILY@0600 JANELLE Administration Miscellaneous 1 each 03/05/18 22:00 03/15/18 21:24 Lidoderm Patch Removal MC 1 each DAILY@2200 JANELLE Administration Nicotine 21 mg 03/06/18 10:00 03/16/18 10:12 Nicoderm Patch - TD Not Given DAILY JANELLE Nicotine Polacrilex 2 mg 03/05/18 15:12 Nicorette Gum - BUC Q2H PRN NICOTINE REPLACEMENT RX Multivit/Folic Acid/Iron 1 tab 03/06/18 10:00 03/16/18 10:12 Vitamins (Sjr) - PO 1 tab DAILY JANELLE Administration Pseudoephedrine/Triprolidine 1 combo 03/05/18 15:12 Actifed - PO TID PRN NASAL CONGESTION Ranitidine HCl 150 mg 03/05/18 22:00 03/16/18 10:12 Zantac - PO 150 mg BID JANELLE Administration Thiamine HCl 100 mg 03/05/18 22:00 03/15/18 21:24 Vitamin B1 - PO 100 mg HS JANELLE Administration Trimethobenzamide HCl 200 mg 03/06/18 10:22 03/06/18 18:42 Tigan Injection - IM 200 mg Q8H PRN Administration NAUSEA Current Side Effect: No Lab tests ordered: No Lab tests reviewed: Yes Provider note:: Patient will complete this program tomorrow 03/17/18.She has met her treatment goals and will continue to address her issues on outpatient basis at her [facility]. Supportive therapy provided focusing on relapse prevention.Support system,coping skills utilization as well as other resourses to maintain recovery has been discussed with the patient,. Patient is stable for discharge tomorrow 03/17/18. Total face to face time:: 25 Mental Status Exam - Mental Status Exam Alert and Oriented to: Time, Place, Person Cognitive Function: Fair, Good, Grossly Intact, Impaired Patient Appearance: Well Groomed Mood: Euthymic Affect: Mood Congruent Patient Behavior: Cooperative Speech Pattern: Clear Voice Loudness: Normal Thought Process: Goal Oriented Thought Disorder: Not Present Hallucinations: Denies Suicidal Ideation: Denies Homicidal Ideation: Denies Insight/Judgement: Fair Sleep: Fair Appetite: Good Muscle strength/Tone: Normal Gait/Station: Normal Psychiatric Treatment Plan - Problem List (1) Alcohol dependence Current Visit: Yes (2) Cocaine dependence Current Visit: Yes (3) Opioid dependence on agonist therapy Current Visit: Yes (4) Sedative hypnotic or anxiolytic dependence Current Visit: Yes
[2018-03-16] MEDS: THIAMINE HCL 100 MG TABLET (FP) PO SCH (21:30)
[2018-03-16] MEDS: INSULIN (LEVEMIR) 100 UNITS/ML UNITS SQ SCH (21:31)
[2018-03-16] MEDS: ATORVASTATIN CA 40 MG TABLET (FP) PO SCH (21:31)
[2018-03-16] MEDS: MELATONIN 5 MG TABLETS PO PRN (21:31)
[2018-03-16] MEDS: LIDOCAINE PATCH REMOVAL MC SCH (21:31)
[2018-03-17] MEDS ORDERED: METHADONE HCL 40 MG DISPERSABLE TABLET ONE (03:18)
[2018-03-17] MEDS ORDERED: METHADONE HCL 10 MG TABLET ONE (03:18)
[2018-03-17] MEDS: METHADONE 80 MG, METHADONE 10 MG PO SCH (06:35)
[2018-03-17] MEDS: INSULIN SLIDING SCALE (NOVOLOG) 1 VIAL SQ SCH (06:36)
[2018-03-17 07:12] VITALS: TEMP 98.3
[2018-03-17] MEDS: metFORMIN HCL 500 MG TABLET (FP) PO SCH (08:05)
[2018-03-17 09:16] VITALS: BP 148/76; PULSE 92
[2018-03-17] MEDS: ASPIRIN 81 MG CHEWABLE TABLETS PO SCH (10:01)
[2018-03-17] MEDS: LIDOCAINE 5% TOPICAL PATCH TP SCH (10:01)
[2018-03-17] MEDS: NICOTINE 21 MG/24 HOURS TOPICAL PATCH TD SCH (10:02)
[2018-03-17] MEDS: amLODIPine BESYLATE 10 MG TABLET (FP) PO SCH (10:02)
[2018-03-17] MEDS: PRENATAL VITAMINS W/ FOLIC ACID TABLET (FP) PO SCH (10:02)
[2018-03-17] MEDS: LISINOPRIL 20 MG TABLET (FP) PO SCH (10:02)
[2018-03-17] MEDS: RANITIDINE HCL 150 MG TABLET (FP) PO SCH (10:02)
== END 2018-03-17 10:33 | disposition home or self-care (01) | DRG 772 ==
LOC: YASAS 11:21 → Y3E 11:23
PROVIDERS: ADMIT Psychiatry & Neurology Psychiatry; ATTEND Psychiatry & Neurology Psychiatry
PROC: HZ42ZZZ Group Counseling for Substance Abuse Treatment, Cognitive-Behavioral (ICD-10-PCS; principal; 2018-03-05)
DX: F10.20 Alcohol dependence, uncomplicated (principal); F11.20 Opioid dependence, uncomplicated; F13.20 Sedative, hypnotic or anxiolytic dependence, uncomplicated; F14.20 Cocaine dependence, uncomplicated; F41.9 Anxiety disorder, unspecified; I10 Essential (primary) hypertension; E78.5 Hyperlipidemia, unspecified; E11.9 Type 2 diabetes mellitus without complications; Z79.4 Long term (current) use of insulin; B18.2 Chronic viral hepatitis C; M12.9 Arthropathy, unspecified; H26.9 Unspecified cataract
CPT/HCPCS: 82962